=== PATIENT | female | born 1965 | race Caucasian/White ===

== ENCOUNTER → 2019-05-06 12:33 | Outpatient (CLI) | payer BC, SELFPAY ==
--- NOTE | 2019-05-06 12:36 | RAD_ITS ---
STUDY: X-RAY - RIGHT FOOT CLINICAL: Female, 53 years old. Pain TECHNIQUE: 3 view(s) of the foot. COMPARISON: None. FINDINGS: Normal talus and tarsal bones. Calcaneal spurs Normal visualized subtalar, talonavicular, calcaneocuboid, tarsal and tarsometatarsal articulations. Normal metatarsi. Normal metatarsophalangeal joint of the great toe. Normal tibial and fibular sesamoid bones. Normal interphalangeal joint of the great toe. Normal phalanges of the great toe. Normal second through fifth metatarsophalangeal joints. Normal interphalangeal joints and phalanges of the lesser toes. The soft tissue structures are unremarkable. RAD/Foot min 3 Views IMPRESSION: Calcaneal spurs, no demonstrated fracture or suspicious osseous lesion Electronically Signed: Iron Thomas MD at 14:44 EDT , Service support ,
== END ==
PROVIDERS: PCP Physician Assistant; Referring Provider Physician Assistant; Visit Provider Physician Assistant
DX: M79.671 Pain in right foot (principal)
CPT/HCPCS: 73630

== ENCOUNTER → 2019-05-27 09:10 | Outpatient (CLI) | payer BC, SELFPAY ==
--- NOTE | 2019-05-27 09:12 | RAD_ITS ---
STUDY: X-RAY - RIGHT FOOT CLINICAL: Female, 54 years old. Fracture follow-up TECHNIQUE: 3 view(s) of the foot. COMPARISON: None. FINDINGS: Normal talus, calcaneus, and tarsal bones. Normal visualized subtalar, talonavicular, calcaneocuboid, tarsal and tarsometatarsal articulations. Healing fracture of the neck of the third metatarsal. Normal metatarsophalangeal joint of the great toe. Normal tibial and fibular sesamoid bones. Normal interphalangeal joint of the great toe. Normal phalanges of the great toe. Normal second through fifth metatarsophalangeal joints. Normal interphalangeal joints and phalanges of the lesser toes. The soft tissue structures are unremarkable. RAD/Foot min 3 Views IMPRESSION: Healing fracture of the neck of the third metatarsal. Electronically Signed: Jhoan Griffith MD at 21:16 EST Tel , Service support ,
== END ==
PROVIDERS: PCP Physician Assistant; Referring Provider Physician Assistant; Visit Provider Physician Assistant
DX: M84.374A Stress fracture, right foot, initial encounter for fracture (principal)
CPT/HCPCS: 73630

== ENCOUNTER → 2019-06-17 09:03 | Outpatient (CLI) | payer BC, SELFPAY ==
--- NOTE | 2019-06-17 09:04 | RAD_ITS ---
STUDY: X-RAY - RIGHT FOOT CLINICAL: Female, 54 years old. Follow-up fracture TECHNIQUE: 3 view(s) of the foot. COMPARISON: 05/27/2019. FINDINGS: Increased new bone formation across the fracture of the distal third metatarsal. Continued normal alignment and position. Fracture line is still clearly evident. No other changes or acute abnormalities. RAD/Foot min 3 Views IMPRESSION: Continued healing of a fracture of the distal third metatarsal in near anatomic alignment and position. Fracture line is still seen. Electronically Signed: Sushil French MD at 23:53 EST , Service support ,
== END ==
PROVIDERS: PCP Physician Assistant; Referring Provider Physician Assistant; Visit Provider Physician Assistant
DX: S92.301A Fracture of unspecified metatarsal bone(s), right foot, initial encounter for closed fracture (principal)
CPT/HCPCS: 73630